=== PATIENT | male | born 2000 | race Caucasian/White ===

== ENCOUNTER 2019-05-30 12:39 | Emergency (ER) | payer BC ==
[2019-05-30 13:17] VITALS: BP 113/73
--- NOTE | 2019-05-30 13:31 | UC ---
FLU HPI - HPI Summary HPI Summary: 18-year-old male presenting with nasal congestion, sore throat, intermittent productive cough, fever and chills 2 days. Denies shortness breath and wheezing. Denies nausea and vomiting. Normal appetite. Taking over-the- counter cold medications without relief. - History of Current Complaint Chief Complaint: UCRespiratory Stated Complaint: FLU LIKE SYMPTOMS Hx Obtained From: Patient Pain Intensity: 3 Pain Scale Used: 0-10 Numeric - Allergy/Home Medications Allergies/Adverse Reactions: Allergies Allergy/AdvReac Type Severity Reaction Status Date / Time No Known Allergies Allergy Verified 05/30/19 13:17 Home Medications: Home Medications Dm/PE/Acetaminophen/Doxylamine [Vicks Dayquil-Nyquil Cold-Flu] 1 each PO Q6H 05/18 [History Confirmed 05/30/19] Ibuprofen TAB* [Advil TAB*] 200 mg PO Q6H 05/30/19 [History Confirmed 05/30/19] PMH/Surg Hx/FS Hx/Imm Hx - Surgical History Surgical History: Yes Surgery Procedure, Year, and Place: tonsils - Family History Known Family History: Positive: Non-Contributory - Social History Alcohol Use: Weekly Substance Use Type: None Smoking Status (MU): Never Smoked Tobacco Review of Systems All Other Systems Reviewed And Are Negative: Yes Constitutional: Positive: Fever, Chills, Fatigue ENT: Positive: Sore Throat, Sinus Congestion Respiratory: Positive: Cough. Negative: Shortness Of Breath Cardiovascular: Positive: Negative Gastrointestinal: Positive: Negative. Negative: Vomiting, Nausea Musculoskeletal: Positive: Myalgia Neurological: Positive: Headache Physical Exam - Summary Physical Exam Summary: Vital Signs Reviewed: Yes A+Ox3, no distress Eyes: Conjunctiva Clear ENT: Hearing grossly normal, TM x 2 clear, moist, uvula midline, no exudate, + pharyngeal erythema, +tonsillar swelling Neck: Positive: Supple Respiratory: Positive: No respiratory distress, No accessory muscle use + CTA throughout no w/r Cardiovascular: RRR nl s1, s2 no m/r Musculoskeletal Exam: CASTRO x 4 without difficulty Neurological: Positive: Alert Psychological: Positive: age appropriate behavior Skin: Positive: no rash, no ecchymosis Vital Signs: Initial Vital Signs Temp 97.9 F 05/30/19 13:13 Pulse 84 05/30/19 13:13 Resp 16 05/30/19 13:13 BP 113/73 05/30/19 13:13 Pulse Ox 98 05/30/19 13:13 Lab Results 05/30/19 05/30/19 Range/Units 13:29 13:32 Influenza B (Rapid) Positive A (Negative) Group A Strep Rapid Positive A (Negative) Flu Course/Dx - Course Course Of Treatment: Positive rapid flu and strep. I treated patient with penicillin for strep. Educated on influenza and tamiflu. Patient stated he would like to be treated with tamiflu when given the option, so I sent prescription for tamiflu as well. Instructed to continue with symptomatic treatment and follow up with [facility] with new or worsening symptoms. Patient voiced understanding and agreed with treatment plan. - Differential Dx/Diagnosis Provider Diagnosis: Influenza B, Strep pharyngitis Discharge ED - Sign-Out/Discharge Documenting (check all that apply): Patient Departure All imaging exams completed and their final reports reviewed: No Studies - Discharge Plan Condition: Stable Disposition: HOME Prescriptions: Oseltamivir CAP* [Tamiflu CAP*] 75 mg PO BID #10 cap Penicillin VK 500 MG TAB(NF) [Penicillin VK 500 mg Tab] 500 mg PO BID #20 tab Patient Education Materials: Strep Throat (ED), Influenza (ED) Referrals: [facility] [Outside] - If Needed Additional Instructions: As discussed, you tested positive for influenza and strep throat today. Take tamiflu and penicillin as prescribed. You may continue with over the counter cold and flu medications. Get plenty of rest and increase your fluid intake. Follow up with the [facility] if symptoms worsen or do not resolve within 10 days. - Billing Disposition and Condition Condition: STABLE Disposition: Home - Attestation Statements Provider Attestation: This patient was not seen by me. I was available for consult. Chart reviewed. SALOME
[2019-05-30 13:35] LABS: Influenza B Molecular POSITIVE (Negative)
== END 2019-05-30 13:54 | disposition home or self-care (01) ==
LOC: UCEAST 12:39
DX: J10.1 Influenza due to other identified influenza virus with other respiratory manifestations (principal); J02.0 Streptococcal pharyngitis
CPT/HCPCS: 87651; 99202; G0463